=== PATIENT | male | born 2005 | race Two or more races ===

== ENCOUNTER 2024-03-14 11:19 | Emergency (ER) | payer SELFPAY ==
[2024-03-14] VITALS (7 sets, daily range): BP systolic 102–128; BP diastolic 67–78; PULSE 53–66; RESP 16–18; TEMP 36.5–36.7; O2SAT 97–100; BMI 20.9
--- NOTE | 2024-03-14 11:35 | XR_ITS ---
PROCEDURE INFORMATION: Exam: XR Right Hand Exam date and time: 03/14/2024 11:40 AM Age: 18 years old Clinical indication: Other: Splinter near palm of hand; Additional info: Fb R hand TECHNIQUE: Imaging protocol: Radiologic exam of the right hand. Views: 3 or more views. COMPARISON: No relevant prior studies available. FINDINGS: Bones/joints: A wrist bangle is present. No acute fracture or malalignment. No worrisome lytic or blastic osseous lesion. No appreciable cortical erosion or periosteal reaction. Joint spaces are preserved. Soft tissues: No appreciable embedded foreign body. Trace soft tissue gas noted in the 1st inter webspace. Other findings: . IMPRESSION: 1. No acute fracture or malaligment. 2. No appreciable embedded foreign body. Trace soft tissue gas noted in the 1st inter webspace.
--- NOTE | 2024-03-14 11:37 | HMH.EDGENADL ---
Discharge Plan Disposition Patient Disposition: Xfer Short-Term Hosp Condition: Good Referrals Follow up/Referrals: Provider,Referral, MD [Primary Care Provider] - See instructions Clinical Impressions Clinical Impression: Foreign body hand Qualifiers: Encounter type: initial encounter Laterality: right Qualified Code(s): S60.551A - Superficial foreign body of right hand, initial encounter Stand Alone Forms Stand Alone Forms: Transfer Record - ED Print Language Print Language: Lithuanian Discharge ED Provider: Ernst Hinkle General Adult HPI General Chief complaint: Extremity Injury, Upper Stated complaint: AO right thumb Time Seen by Provider: 03/14/24 11:29 Mode of Arrival: Ambulatory Source of Information: Patient Limitations: Language Barrier Description of Symptoms (Recalled from ER Triage Doc. by RN): r hand injury. has a large splinter lodged in his hand. History of Present Illness HPI narrative: This is an otherwise healthy 18-year-old male who presents with an injury to right hand. States that he was unloading tobacco whenever a piece of wood went into his right thumb. States that he cannot move his right thumb and he is having tingling. Denies any other injuries. Reports tetanus shot 6 to 8 years ago. Related Data Allergies Allergy/AdvReac Type Severity Reaction Status Date / Time No Known Allergies Allergy Verified 03/14/24 11:33 [facility] Disclaimer: The information contained in this section may have been updated after the patient was seen, as this information can be updated by other users. Social History Smoking Status: Never smoker alcohol intake: never current occupational status: employed Travel in the last 8 weeks: None ROS Obtained: Yes All systems reviewed & no additional complaints except as documented Physical Exam General General appearance: alert and in no apparent distress Eye Eye exam: Present normal appearance, PERRL and EOMI Respiratory Respiratory exam: Present normal lung sounds bilaterally; Absent respiratory distress Cardiovascular Cardiovascular exam: Present regular rate and normal rhythm Abdominal Exam Abdominal exam: Present soft and distention; Absent tenderness, guarding or rebound Extremities Exam Extremities exam: Present other (R hand: Apparent embedded foreign body in the right hand in the thenar eminence. Unable to flex or adduct thumb. Sensation intact.) Neurological Exam Neurological exam: Present alert and oriented X3 Skin Skin exam: Present warm and dry Medical Decision Making Medical Records Medical records reviewed: Yes I reviewed the patient's medical records. Screening: Per USPSTF and CDC recommendations, given the prevalence of disease in our region, it is our hospital?s policy to screen for HIV and viral Hepatitis for all patients aged 18 and over and those with ongoing risk factors. Art Inquiry Pt receiving controlled substance: No Vital Signs: 03/14/24 11:21 03/14/24 11:25 03/14/24 11:30 Temperature 97.7 F Temperature Source Oral Pulse Rate 66 57 L Pulse Rate [Right] 61 Respiratory Rate 18 Blood Pressure 102/78 L 106/67 L Blood Pressure [Right Arm] 107/68 L Blood Pressure Mean [Right Arm] 81 02 Sat by Pulse Oximetry 97 99 97 Oxygen Delivery Method Room Air Room Air Orders (Tests/Meds): ED MEDICATIONS Generic Name Dose Route Start Last Admin Trade Name Freq PRN Reason Stop Dose Admin Cefazolin Sodium 2 gm/ Sodium 50 mls @ 100 mls/hr 03/14/24 12:10 Chloride IV 03/14/24 12:39 ONCE ONE Discontinued Medications Generic Name Dose Route Start Last Admin Trade Name Freq PRN Reason Stop Dose Admin Oxycodone HCl 5 mg 03/14/24 11:36 03/14/24 11:48 Oxycodone 5mg Immediate Release Tablet PO 03/14/24 11:37 5 mg ONCE ONE Administration Tetanus/Reduced Diphtheria/Acell Pertussis 0.5 ml 03/14/24 11:35 03/14/24 11:49 Tet/Diphth/Pert-Adult 0.5ml Syringe IM 03/14/24 11:36 0.5 ml .ONCE ONE Administration ORDERS Category Date Time Status Hand XR right minimum 3 views [XR hand RT min 3V] Stat Exams 03/14/24 11:35 Taken Medical Decision Narrative: In summary, this otherwise healthy 18-year-old male presents to the emergency department today with injury to the right hand, embedded foreign body. On initial evaluation patient is afebrile, hemodynamically stable, nontoxic-appearing. Differential diagnosis includes but is not limited to embedded foreign body, fracture, neurovascular injury, tendon injury. Based on these concerns, I ordered x-ray of the right hand. Patient received Tdap and oxycodone for treatment. Administered Ancef 2 g as well. XR personally interpreted demonstrates no acute osseous pathology. Given sizable foreign body in the patient's thenar eminence that was not able to be easily removed at bedside, patient was appropriate for transfer to a center with a hand specialist. Patient was ultimately accepted as a transfer to [facility] under Dr. South. Barbosa in stable condition. Critical Care Critical Care Time Critical Care Time: No
--- NOTE | 2024-03-14 11:45 | PC.NURSE ---
XR AT BEDSIDE
[2024-03-14] MEDS: OXYCODONE 5MG IMMEDIATE RELEASE TABLET 5 MG PO (11:48)
[2024-03-14] MEDS: TET/DIPHTH/PERT-ADULT 0.5ML SYRINGE 0.5 ML IM (11:49)
--- NOTE | 2024-03-14 12:07 | PC.NURSE ---
Called per Dr Hinkle to speak with them about the foreign body in pts hand. transferred and is speaking to the hospitalist at at this time
[2024-03-14] MEDS: CEFAZOLIN SODIUM 2 GM in 0.9 % SODIUM CHLORIDE 100 ML IV (12:40)
--- NOTE | 2024-03-14 12:45 | PC.NURSE ---
report called to astrid
== END 2024-03-14 13:16 | disposition short-term general hospital (02) ==
PROVIDERS: Emergency Provider Student in an Organized Health Care Education/Training Program
DX: S60.559A Superficial foreign body of unspecified hand, initial encounter (principal); M79.641 Pain in right hand; Z23 Encounter for immunization; X58.XXXA Exposure to other specified factors, initial encounter; Y93.89 Activity, other specified; Y92.9 Unspecified place or not applicable
CPT/HCPCS: 73130; 90471; 90715; 96365; 99283; J0690

== ENCOUNTER 2025-01-09 14:32 | Emergency (ER) | payer SELFPAY ==
--- OUTSIDE RECORDS SUMMARY | 2025-01-09 14:51 | XMS_ITS | Clinical Summary ---
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 Name Role Phone Pcp, No Primary Care Provider Unavailabl e Allergies No known active allergies Social History Tobacco Use Types Packs/Day Years Used Date Smoking Tobacco: Never Assessed Sex and Gender Information Value Date Recorded Sex Assigned at Not on file Legal Sex Male 12:05 PM EDT Gender Identity Not on file Sexual Orientation Not on file Last Filed Vital Signs Vital Sign Reading Time Taken Comments Blood Pressure 106/64 03/14/2024 5:08 PM EDT Pulse 57 03/14/2024 5:08 PM EDT Temperature 36.6 C (97.9 F) 03/14/2024 5:08 PM EDT Respiratory Rate 18 03/14/2024 5:08 PM EDT Oxygen Saturation 99% 03/14/2024 5:08 PM EDT Inhaled Oxygen Concentration - - Weight - - Height - - Body Mass Index - - Plan of Treatment Not on file Insurance Care Teams Farm Facility Manager Relationship Specialty Start Date End Date Pcp, No [address] [place] [address] PCP - General Family Medicine 03/14/24
--- NOTE | 2025-01-09 14:54 | CT_ITS ---
FINAL REPORT TECHNIQUE: After the administration of oral and intravenous contrast, axial images were obtained through the abdomen and pelvis by computed tomography. The study was performed with techniques to keep radiation dose as low as reasonably achievable, (ALARA). Individual dose reduction techniques using automated exposure control or adjustment of mA and/or kV according to the patient's size were employed. CLINICAL HISTORY: Epigastric abdominal pain FINDINGS: Abdomen: There is scarring at the lung bases. The liver parenchyma is homogeneous. The gallbladder is significantly contracted. There is either gallbladder wall thickening or pericholecystic fluid. The spleen, pancreas, adrenals and kidneys appear unremarkable. The aorta is normal in caliber. There is no free fluid or adenopathy. Pelvis: The appendix is normal. The urinary bladder is incompletely distended. The bladder mucosa is prominent, probably due to incomplete distention. There is no free fluid or adenopathy. IMPRESSION: Gallbladder wall thickening or pericholecystic fluid. Gallbladder ultrasound is recommended to better characterize. Prominence of the bladder mucosa favored to be related to incomplete distention. Reviewed, Interpreted and Dictated by Serafin Colvin MD Transcribed by Brooklynn Adorno Authenticated and . [facility]
--- NOTE | 2025-01-09 14:56 | ECG_ITS ---
APPROVED REPORT Exam: Resting ECG HR:45 bpm ECG Measurements Heart Rate 45 AXES [place] 120 P 68 QRSd 88 QRS 89 QT 420 T 37 QTc 376 Conclusion Normal sinus rhythm Normal axis Normal intervals No STEMI Electronically signed by : Everett Hebert, 01/09/2025 16:07:05
[2025-01-09 14:57] VITALS: BP 132/68; PULSE 50; RESP 17; O2SAT 100; BMI 19.6
[2025-01-09 15:16] LABS: Hematocrit 39.5 % (42.0-52.0); Hemoglobin 14.1 g/dL (14.1-18.0); Immature Granulocytes % 0.2 %; Mean Corpuscular HGB Conc 35.7 g/dL (31.8-35.4); Mean Corpuscular Hemoglobin 32.6 pg (27.0-31.2); Mean Corpuscular Volume 91.4 fl (80-94); Nucleated Red Blood Cells % 0 %; Platelet Count 227 K/mm3 (142-424); Red Blood Count 4.32 M/mm3 (4.60-6.20); Red Cell Distribution Width-SD 41.1 fL; White Blood Count 5.8 K/mm3 (4.5-13.0)
[2025-01-09] MEDS: LACTATED RINGERS 1000ML 1,000 ML 999 ML IV (15:26)
[2025-01-09] MEDS: FAMOTIDINE 20MG/2ML VIAL 20 MG IV (15:28)
[2025-01-09] MEDS: SODIUM CHLORIDE 0.9% 10ML VIAL 8 ML IV (15:28)
[2025-01-09] MEDS: BELLADONNA ALKALOIDS 60 ML ML PO (15:28)
[2025-01-09 15:29] LABS: Albumin Level 4.4 g/dl (3.5-5.0); Chloride 108 mmol/L (98-107); Potassium 3.9 mmoL/L (3.5-5.1); Sodium 140 mmol/L (136-145)
[2025-01-09 15:30] VITALS: BP 117/71; PULSE 50; O2SAT 98
[2025-01-09 15:32] LABS: Alanine Aminotransferase 33 U/L (12-78); Albumin/Globulin Ratio 1.6 (1.1-1.8); Alkaline Phosphatase 71 U/L (38-126); Anion Gap 10.9 mEq/L (5-15); Aspartate Amino Transferase 34 U/L (17-59); Bilirubin,Total 0.3 mg/dl (0.2-1.3); Blood Urea Nitrogen 15 mg/dl (9-20); Calcium 8.9 mg/dl (8.4-10.2); Carbon Dioxide 25 mmol/L (22.0-30.0); Creatine Kinase 130 U/L (55-170); Creatinine Clearance Estimated 157 mL/min (50-200); Creatinine,Serum 0.70 mg/dl (0.66-1.25); Estimated Glomerular Filt Rate 144 ml/min (>60); GFR (African American) 174 ML/MIN (>60); Globulin 2.8 g/dL (1.3-3.2); Glucose 113 mg/dl (74-100); Lipase 70 U/L (23-300); Total Protein,Serum 7.2 g/dl (6.3-8.2)
[2025-01-09 15:46] LABS: Troponin I < 0.01 ng/ml (0.00-0.034)
[2025-01-09] MEDS: IOPAMIDOL-370 (76%);100ML BOTTLE 75 ML IV (15:56)
[2025-01-09] MEDS: SODIUM CHLORIDE 0.9% 10ML SYR (RAD ONLY) 10 ML IV (15:56)
--- NOTE | 2025-01-09 16:00 | ED_ITS ---
Discharge Plan Disposition Patient Disposition: Home, Self-Care Condition: Good Prescriptions Prescriptions: New pantoprazole 40 mg tablet,delayed release (DR/EC) 40 mg PO DAILY 14 Days Qty: 14 0RF Referrals Follow up/Referrals: Provider,Referral, [Primary Care Provider, Medical] - See instructions Activity Restrictions/Add. Instructions Additional Instructions/Restrictions: Please take protonix for the next 14 days for your symptoms. If your symptoms persist or you have new or worsening symptoms please return for further evaluation. Clinical Impressions Clinical Impression: Abdominal pain, epigastric Instructions Patient Instructions: DI for Acute Abdominal Pain Print Language Print Language: Mexican Discharge ED Provider: Everett Hebert Adult HPI General Chief complaint: Abdominal Pain Stated complaint: dizzy,chest pain Time Seen by Provider: 01/09/25 14:39 Mode of Arrival: Ambulatory Source of Information: Patient Description of Symptoms (Recalled from ER Triage Doc. by RN): Pt reports dizziness, headache and weakness via manager biostatistics. Pt reports his symptoms started today. History of Present Illness HPI narrative: This is a 19-year-old male patient, with no significant past medical history other medications, who is presenting to the emergency department today for a conglomerate of multiple symptoms. 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 The patient himself does not speak Luxembourger and needs a aerial photograph interpreter. He tells me that yesterday he got overheated and worked very hard on the farm. Today he has been having symptoms of bodyaches and malaise. He did have some intermittent headaches earlier in the day but did not have any vision changes and his headaches did not get worse with lying flat. He has had no fevers. He has had no vision changes. Additionally to this, he has been having some epigastric abdominal pain. He does not drink alcohol. He does not currently smoke. He has had no nausea or vomiting. No diarrhea. No hematochezia, melena, or hematochezia. No chest pain or shortness of breath Related Data Previous Rx's ?Medication ?Instructions ?Recorded pantoprazole 40 mg tablet,delayed 40 mg PO DAILY 14 da ys #14 tabs 01/09/25 release Allergies Allergy/AdvReac Type Severity Reaction Status Date / Time No Known Allergies Allergy Verified 01/09/25 15:09 [facility] Disclaimer: The information contained in this section may have been updated after the patient was seen, as this information can be updated by other users. Social History (Updated 03/14/24 @ 12:13 by Ernst Hinkle MD) Smoking Status: Never smoker alcohol intake: never current occupational status: employed Travel in the last 8 weeks?: None Have you lived/traveled outside US in past 30 days?: No Contact w/someone who lives/traveled outside US past 30 days?: No Exposure to someone with infectious disease in past 14 days?: No Do you have a fever (greater than 100.4 F or 38 C)?: No Have you tested positive for COVID-19?: No Exposed to someone with COVID-19 in past 14 days?: No Do you have a sore throat?: No Do you have a cough?: No Do you have any weakness?: No Do you have any diarrhea?: No Are you experiencing any unusual bleeding?: No Do you have any muscle aches/pain?: No Do you have any abdominal pain?: No Are you experiencing loss of taste or smell?: No ROS Obtained: Yes Systems reviewed as appropriate & no additional complaints except as documented Physical Exam General General appearance: other (See MDM) Respiratory Respiratory exam: Present other (See MDM) Cardiovascular Cardiovascular exam: Present other (See MDM) Neurological Exam Neurological exam: Present other (See MDM) Medical Decision Making Medical Records Medical records reviewed: Yes I reviewed the patient's medical records. Screening: Per USPSTF and CDC recommendations, given the prevalence of disease in our region, it is our hospital?s policy to screen for HIV and viral Hepatitis for all patients aged 18 and over and those with ongoing risk factors. Art Inquiry Pt receiving controlled substance: No Art was queried for this patient: No Vital Signs: 01/09/25 14:57 01/09/25 15:30 01/09/25 16:01 Pulse Rate 50 L 45 L Pulse Rate [Right Brachial] 50 L Respiratory Rate 17 Blood Pressure 117/71 125/42 L Blood Pressure [Right Arm] 132/68 Blood Pressure Mean [Right Arm] 89 Blood Pressure Source [Right Arm] Automatic Cuff Blood Pressure Position [Right Arm] Sitting 02 Sat by Pulse Oximetry 100 98 99 Oxygen Delivery Method Room Air 01/09/25 16:30 Pulse Rate 40 L Pulse Rate [Right Brachial] Respiratory Rate Blood Pressure 123/72 Blood Pressure [Right Arm] Blood Pressure Mean [Right Arm] Blood Pressure Source [Right Arm] Blood Pressure Position [Right Arm] 02 Sat by Pulse Oximetry 100 Oxygen Delivery Method Room Air Lab Data Lab Results 01/09/25 15:07: WBC 5.8, RBC 4.32 L, Hgb 14.1, Hct 39.5 L, MCV 91.4, MCH 32.6 H, MCHC 35.7 H, RDW 12.4, Plt Count 227, MPV 9.9, Neut % (Auto) 54.6, Lymph % (Auto) 32.1, [place] % (Auto) 10.5 H, Eos % (Auto) 2.4, Baso % (Auto) 0.2, Neut # (Auto) 3.2, Lymph # (Auto) 1.9, [place] # (Auto) 0.6, Eos # (Auto) 0.1, Baso # (Auto) 0.0, Sodium 140, Potassium 3.9, Chloride 108 H, Carbon Dioxide 25, Anion Gap 10.9, BUN 15, Creatinine 0.70, Estimated Creat Clear 157, Estimated GFR 144, Est GFR ( Amer) 174, Glucose 113 H, Calcium 8.9, Total Bilirubin 0.3, AST 34, ALT 33, Alkaline Phosphatase 71, Total Creatine Kinase 130, Troponin I < 0.01, Total Protein 7.2, Albumin 4.4, Globulin 2.8, Albumin/Globulin Ratio 1.6, Lipase 70, HCV Ab HEIDE w/Rflx PCR Qn Negative, HIV Ag/Ab Combo Qual Negative 01/09/25 15:07 01/09/25 15:07 Orders (Tests/Meds): ED MEDICATIONS Generic Name Dose Route Start Last Admin Trade Name Freq PRN Reason Stop Dose Admin Sodium Chloride 8 ml 01/09/25 14:54 01/09/25 15:28 Sodium Chloride 0.9% 10ml Vial IV 02/08/25 14:53 8 ml NEEDED PRN Administration dilute pepcid Sodium Chloride 10 ml 01/09/25 15:55 01/09/25 15:56 Sodium Chloride 0.9% 10ml Syr (Rad Only) IV 02/08/25 15:54 10 ml NEEDED PRN Administration Maintain IV Site Discontinued Medications Generic Name Dose Route Start Last Admin Trade Name Freq PRN Reason Stop Dose Admin Belladonna Alkaloids 60 ml 01/09/25 14:54 01/09/25 15:28 Belladonna Alkaloids 60 Ml Ml PO 01/09/25 14:55 60 ml ONCE ONE Administration Famotidine 20 mg 01/09/25 14:54 01/09/25 15:28 Famotidine 20mg/2ml Vial IV 01/09/25 14:55 20 mg ONCE ONE Administration Lactated Ringer's 1,000 mls @ 999 mls/hr 01/09/25 15:21 01/09/25 16:57 Lactated Ringer's 1000 Ml Bag IV 01/09/25 16:21 Infused .Q1H1M ONE Infusion Iopamidol 75 ml 01/09/25 15:55 01/09/25 15:56 Iopamidol-370 (76%);100ml Bottle IV 01/09/25 15:56 75 ml ONCE ONE Administration ORDERS Category Date Time Status CT abdomen pelvis w con Stat Cat Scan 01/09/25 14:54 Completed POCUS Point of Care (ER Only) Stat Exams 01/09/25 14:38 Completed CBC w/Auto Diff [Complete Blood Count Auto Diff] Stat Lab 01/09/25 15:07 Completed CK [Creatine Kinase] Stat Lab 01/09/25 15:07 Completed CMP [Comprehensive Metabolic Panel] Stat Lab 01/09/25 15:07 Completed HIV Combo Stat Lab 01/09/25 15:07 Received Hepatitis C Ab Qual. W/ RFX Stat Lab 01/09/25 15:07 Received Lipase Stat Lab 01/09/25 15:07 Completed Troponin I Stat Lab 01/09/25 15:07 Completed ECG Data Tracing #1: I reviewed this ECG and interpreted as documented below: EKG personally turbid by me demonstrates normal sinus bradycardia with a rate of 45 bpm, normal axis, no WV prolongation, narrow QRS, no QTc prolongation. No ST elevation or depression. No overt signs of ischemia or arrhythmia. Medical Decision Narrative: In summary this is a 19-year-old male patient who is presenting to the emergency department today with multiple complaints including body aches, intermittent headaches, and notably epigastric abdominal pain with no other gastrointestinal symptoms. This patient has no comorbidities that would complicate their medical management or care. On initial evaluation of the patient they were resting comfortably in no acute distress and nontoxic in appearance. They are hemodynamically stable, saturating well room air, and are neurologically intact. On physical examination the patient has a GCS of 15 and is appropriately alert and interactive. His heart and lungs are clear to auscultation bilaterally. He appears to be relatively well-hydrated with good capillary refill. His abdominal exam reveals epigastric abdominal tenderness with no obvious rebound. He has no tenderness in the right upper quadrants or left upper quadrant and no tenderness in the bilateral lower quadrants. He is ambulatory without difficulty. Gait is normal. He has no headache with laying flat. Pupils equal round and reactive to light. Neurologic exam is unremarkable. Differential diagnosis includes electrolyte derangement, acute kidney injury, rhabdomyolysis, myocarditis, pericarditis, cholelithiasis, choledocholithiasis, among others. The patient does voice concern over the fact that his 20-year-old brother did recently of gastric cancer. There is nothing from this patient's history that would suggest that he has gastric cancer, however with his epigastric abdominal tenderness and this concern we will proceed with a CT scan of the abdomen and pelvis as well as hematologic labs. Labs were personally charted by me and demonstrates no actionable abnormalities. No anemia. No leukocytosis. No significant electrolyte derangements or acute kidney injury. Troponin is less than 0.01. He is not having chest pain so we will not obtain a troponin delta. Transaminases are within normal limits and no elevation of the alkaline phosphatase enzyme. CK is also normal. EKG was interpreted above and reveals no findings concerning for ischemia. I did perform a POCUS assessment of the patient's heart as well as his gallbladder. His gallbladder POCUS exam reveals no abnormalities. No evidence of choledocholithiasis as there is no common bile duct dilation. No pericholecystic fluid. Gallbladder is depressed. No stones present. On limited POCUS cardiac exam he has good cardiac squeeze with no evidence of pericardial effusion. No regional wall motion abnormalities. I have low suspicion for myocarditis or pericarditis at this time. We did treat the patient with Pepcid as well as a GI cocktail. On repeat reassessment he is resting comfortably and is in no acute distress. CT scan of the abdomen and pelvis came back showing no acute findings. There was concerned about his decompressed gallbladder with indeterminant pericholecystic fluid around the gallbladder. Again, my POCUS assessment reveals no pericholecystic fluid with a remarkably under distended gallbladder and no gallstones present. I do not feel that he needs a formal gallbladder ultrasound at this time. I have spoken with the patient about the possibility of gastritis. We will trial him on a 2-week course of Protonix. I have given her return precautions in the event that he has new, worsening, or persistent symptoms. At this time all questions have been answered and all parties are agreeable with the decision to discharge home. I have considered social determinants of health while caring for this patient. Social determinants of health include the fact that he speaks Mexican and requires a bag sewer. A trained aerial photograph interpreter was used throughout the duration of this encounter. Procedures Miscellaneous Procedure Procedure Performed: Limited cardiac ultrasound note Indication: Epigastric abdominal pain Identified cardiac views: Cardiac parasternal long axis Cardiac parasternal short axis Cardiac apical four-chamber Cardiac subxiphoid Findings: Cardiac activity: Present Gross wall motion: Normal Pericardial effusion: Absent Right heart strain: Absent Impression: Normal limited cardiac POCUS exam Images were saved to permanent archive This study was technically adequate CPT: 28397 This study was performed by me and I personally interpreted all images/videos. Based on my clinical judgment these images were adequate and did not necessitate further imaging. Limited right upper quadrant ultrasound Indication: Abdominal pain Identified structures: Gallbladder, gallbladder wall, common bile duct Findings: Sonographic Thomas sign: Absent Gallstones: Absent Sludge: Absent Pericholecystic fluid: Absent Maximal gallbladder wall thickness (mm): 3 mm normal Common bile duct with (mm): Less than 4 mm normal Impression: Decompressed gallbladder with no gallbladder wall thickening or pericholecystic fluid. Normal common bile duct diameter with no evidence of dilatation or choledocholithiasis. Images were saved to permanent archive This study was technically adequate CPT: 72010-84 This study was performed by me and I personally interpreted all images/videos. Based on my clinical judgment these images were adequate and did not necessitate further imaging. Critical Care Critical Care Time Critical Care Time: No
[2025-01-09 16:01] VITALS: BP 125/42; PULSE 45; O2SAT 99
--- NOTE | 2025-01-09 16:09 | PC.NURSE ---
SHOWROOM MANAGER IPAD USED ID [id number]
[2025-01-09 16:30] VITALS: BP 123/72; PULSE 40; O2SAT 100
[2025-01-09 16:42] LABS: Hepatitis C Ab Qual. W/ RFX NEGATIVE (Negative)
[2025-01-09 17:15] VITALS: BP 119/88; PULSE 47; RESP 16; TEMP 36.6; O2SAT 99
== END 2025-01-09 17:15 | disposition home or self-care (01) ==
PROVIDERS: Emergency Provider Student in an Organized Health Care Education/Training Program
DX: R10.13 Epigastric pain (principal); R51.9 Headache, unspecified; R42 Dizziness and giddiness; R00.1 Bradycardia, unspecified
CPT/HCPCS: 74177; 80053; 82550; 83690; 84484; 85025; 86803; 87389; 93005; 96361; 96374; 99284; 99285; J7120; Q9967